=== PATIENT | female | born 1995 | race Caucasian/White ===

== ENCOUNTER 2020-01-21 14:04 | Outpatient (REF) | payer MEDICAID, SELFPAY ==
[2020-01-22 08:49] LABS: CT PCR NOT DETECTED (Not Detect.); NG PCR NOT DETECTED (Not Detect.)
== END 2020-01-21 14:05 | disposition home or self-care (01) ==
LOC: HO.LNP 14:04
PROVIDERS: PCP Internal Medicine; Referring Provider Internal Medicine; Visit Provider Obstetrics & Gynecology
DX: Z34.83 Encounter for supervision of other normal pregnancy, third trimester (principal)
CPT/HCPCS: 87081; 87491; 87591

== ENCOUNTER → 2020-01-29 14:25 | Outpatient (BNVA) | payer MEDICAID, SELFPAY | PROVIDERS: PCP Internal Medicine; Visit Provider Obstetrics & Gynecology | DX: Z76.89 Persons encountering health services in other specified circumstances (principal) ==

== ENCOUNTER → 2020-03-09 13:34 | Outpatient (BNVA) | payer MEDICAID, SELFPAY | PROVIDERS: PCP Internal Medicine; Visit Provider Advanced Practice Midwife | DX: Z39.2 Encounter for routine postpartum follow-up (principal) | CPT/HCPCS: 99212 ==

== ENCOUNTER → 2020-03-24 11:50 | Outpatient (BNVA) | payer MEDICAID, SELFPAY | PROVIDERS: Visit Provider Obstetrics & Gynecology | DX: Z76.89 Persons encountering health services in other specified circumstances (principal) ==

== ENCOUNTER → 2020-07-07 12:09 | Outpatient (BNVA) | payer OTHER, SELFPAY | PROVIDERS: Visit Provider Obstetrics & Gynecology ==

== ENCOUNTER → 2020-07-13 14:03 | Outpatient (BNVA) | payer OTHER, SELFPAY | PROVIDERS: Visit Provider Obstetrics & Gynecology | DX: Z30.09 Encounter for other general counseling and advice on contraception (principal) | CPT/HCPCS: 99212 ==

== ENCOUNTER 2020-07-16 09:57 | Day surgery (SDC) | payer OTHER, SELFPAY ==
--- NOTE | 2020-07-15 10:25 | HO.ANESPROP2 ---
Documented by User: Melonie Nuñez 07/15/20 10:25 HPI - Anesthesia Eval Consult details Narrative: 24yo F for Tubal Ligation Laparoscopic PMFSH Active Problems Active Problems: All Active Problems (Updated 07/09/20 @ 13:04 by Robyn Harris) Multigravida in third trimester (Acute) Encounter for assessment (Acute) Depression screen (Acute) Unwanted fertility (Acute) Past Medical History Medical History Recent childbirth Surgical History Surgical History No significant past surgical history Social History Social History Alcohol intake: never Smoking Status: Never smoker Use of substances other than those prescribed or required for medical reasons: No Advance Directives Information Provided: No Sexual orientation: Straight/Heterosexual Gender identity: female Meds Allergies Allergy/AdvReac Type Severity Reaction Status Date / Time No Known Allergies Allergy Verified 07/13/20 14:18 [No Known Allergies*] Exam Exam Date and Time: July 15, 2020 1025 Assessment and Plan Assessment Anesthesia Assessment: Chart Reviewed Documented by User: Karlene Cole 07/16/20 11:21 PMFSH Past Medical History Medical History Recent childbirth Family History Family history of problems with anesthesia: No Surgical History Surgical History No significant past surgical history History of Problems with Anesthesia: No Social History Social History Alcohol intake: never Smoking Status: Never smoker Use of substances other than those prescribed or required for medical reasons: No Advance Directives Information Provided: No Sexual orientation: Straight/Heterosexual Gender identity: female Meds Allergies Allergy/AdvReac Type Severity Reaction Status Date / Time No Known Allergies Allergy Verified 07/13/20 14:18 [No Known Allergies*] Exam Height,Weight and Vital Signs: Vital Signs Temp Pulse Resp BP Pulse Ox 07/16/20 10:56 97.3 F 81 16 119/84 99 Pertinent Lab Results Pertinent Lab Results: Lab Results 07/16/20 Range/Units 11:00 Urine Test NEGATIVE (NEGATIVE) Airway Mallampati Class: II TM Dist: >3cm Neck ROM: Full Partial: Upper Heart: RRR Lungs: CTAB Assessment and Plan Assessment Anesthesia Assessment: Anesthesia Plan Discussed and Chart Reviewed Final Anesthetic Review NPO: Yes ASA Class: II Final Preanesthetic Review: No Changes in Pt Med Stat, Meds/Allgs Chart Reviewed, Consent Obtained/Reviewed and Anes Risks/Benef Reviewed Patient Risk: Low Procedure Risk: Low Assessment/Block/Sedation in SS: Assess/Block/Sedation-SS Anesthetic Plan Anesthetic Plan: GA Disposition: Standard PACU
[2020-07-16 10:12] VITALS: BMI 32.5
[2020-07-16 10:56] VITALS: BP 119/84; PULSE 81; RESP 16; TEMP 36.3; O2SAT 99
[2020-07-16 11:17] LABS: UPreg QC Valid YES; Urine Pregnancy NEGATIVE (NEGATIVE)
[2020-07-16] MEDS: Lactated Ringers 1,000 ML 100 ML IVCONT (11:17)
[2020-07-16] MEDS: Acetaminophen 325 MG TABLET 650 MG PO (11:20)
--- NOTE | 2020-07-16 11:23 | MHC.SHP ---
Pre-Procedural Eval Section A The patient is an INPATIENT: No Changes since office visit: No Cold of Flu in the past 2 weeks, No New Medical Problems, No Changes in Medication and No Patient answered all questions The History & Physical has been completed within 30 days and I have reviewed it.: Yes Section B Chief Complaint: contraception Allergies: Allergies Allergy/AdvReac Type Severity Reaction Status Date / Time No Known Allergies Allergy Verified 07/13/20 14:18 [No Known Allergies*] Plan I have reviewed the history and physical and performed a pertinent physical examination on my patient. No changes have occurred unless specified.
--- NOTE | 2020-07-16 11:32 | W.PM.OPN ---
Operative Note Operative Note Date of Service: 07/16/20 Narrative: Pre-Op Diagnosis: unwanted fertility Post-op Diagnosis: unwanted fertility Procedures performed: laparoscopic bilateral tubal ligation Ms. Hoang Steele is a 24 year old who has completed her family planning and desires a permanent form of sterilization. Surgical Risks: The patient was informed of the risks and benefits of the procedure. Risks included but were not limited to bleeding; infection; injury to the vulva, vagina, cervix, uterus, bladder, intestines, blood vessels, or nerves. The patient was counseled on the risk of sterilization failure being about 1% on average. The patient was informed that in the event a occurs, the risk of ectopic is increased. The patient expressed understanding of the risks involved, all questions were answered, and the patient consented to the procedure. The patient had valid sterilization consent at the time of the procedure. The patient was taken to the operating room where a time out was performed to confirm correct patient and correct procedure. General anesthesia was established. The patient was then positioned on the operating table in the dorsal lithotomy position with the legs supported using stirrups. All pressure points were padded and a Vane hugger was placed to maintain control of core body temperature. The patient was then prepped and draped in the usual sterile fashion. A red rubber catheter was inserted the bladder drained. A sponge stick was placed in the vagina for uterine manipulation. Attention was turned to the abdomen where a 5mm vertical infraumbilical incision was made. The 5mm trocar was introduced under direct visualization using the laparoscopy within the sleeve of the trocar. After intra-abdominal placement had been confirmed, the trocar was removed leaving the sleeve in place. The camera was introduced and pneumoperitoneum was established using carbon dioxide. Inspection of the abdominal cavity showed no gross abnormalities and there was no evidence of injury to the bowel, bladder, or vasculature. Attention was turned to the pelvis. The patient was placed into Trendelenburg position. The fallopian tubes and ovaries were visualized bilaterally. There were no abnormalities noted. A small incision was made in the midline approximately 2cm above the pubic symphysis. A 5mm trocar was introduced through this incision under direct visualization with the laparoscope. The fallopian tubes were inspected bilaterally and the fimbriated ends of the fallopian tube were visualized bilaterally. The right fallopian tube and mesosalpinx were grasped and cauterized using monopolar electrocautery. This was done with approximately three younger starting medially about 1cm from the cornua and working laterally. Good cautery was confirmed. Attention was then turned to the contralateral fallopian tube and mesosalpinx which was grasped about 1cm from the cornua and cauterized with three younger moving laterally with each cauterization. Good fulguration of both tubes was then confirmed. The pneumoperitoneum was then evacuated. The laparoscope was removed and the trocar sleeves were removed. The trocar sites were each injected, after aspiration to confirm location not in a blood vessel, with 0.5% bupivicaine subcutaneously for a total of 10cc. The skin incisions were closed each with one interrupted 3-0 Vicryl suture; Dermabond was then applied. Good hemostasis was confirmed. The patient was transferred to the recovery room in stable condition. All needle, sponge, and instrument counts were noted to be correct x2 at the end of the procedure.
[2020-07-16 12:37] VITALS: BP 126/77; PULSE 84; RESP 16; TEMP 36.2; O2SAT 100
[2020-07-16 12:42] VITALS: BP 121/75; PULSE 67; RESP 17; O2SAT 100
[2020-07-16 12:47] VITALS: BP 126/68; PULSE 60; RESP 17; O2SAT 99
[2020-07-16 12:52] VITALS: BP 116/80; PULSE 66; RESP 17; O2SAT 100
[2020-07-16 13:06] VITALS: BP 125/67; PULSE 64; RESP 17; TEMP 36.2; O2SAT 99
== END 2020-07-16 14:08 | disposition home or self-care (01) ==
LOC: HO.SSS 09:58
PROVIDERS: Nurse Practitioner; Visit Provider Obstetrics & Gynecology
PROC: (CPT 58670; principal; 2020-07-16 11:20)
DX: Z30.2 Encounter for sterilization (principal)
CPT/HCPCS: 58670; 81025; J1100; J2250; J2405; J3010

== ENCOUNTER 2022-11-24 09:50 | Outpatient (REF) | payer OTHER, SELFPAY ==
[2022-11-27 04:49] LABS: TS Negative Control Passed; TS Panel A 0; TS Panel B 0; TS Positive Control Passed; TSpotTB Negative (Negative)
== END 2022-11-24 09:51 | disposition home or self-care (01) ==
LOC: HO.HHCL 09:50
PROVIDERS: Visit Provider Internal Medicine Geriatric Medicine
DX: Z11.1 Encounter for screening for respiratory tuberculosis (principal)
CPT/HCPCS: 36415; 86481

== ENCOUNTER 2023-06-07 14:52 | Outpatient (AMB) | payer OTHER, SELFPAY ==
[2023-06-07 14:54] VITALS: BP 94/62; BMI 35.9
--- NOTE | 2023-06-07 14:54 | MHC.OFFVIS ---
Intake Vital Signs 06/07/23 14:54 Height 5 ft 4 in Weight 209 lb BMI 35.9 BP 94/62 Intake Visit Reasons: Amenorrhea Intake Note: Hasn't had her menses in 2-3 months has taken at home test and all are negative she has had a tubal ligation and states she has always been irregular Director Intelligence Analysis Programs Required: No Information Interpreted: non-clinical & clinical Orderlies Teacher: Orderlies Teacher Present (Rubin) Allergies No Known Allergies [No Known Allergies*] Allergy (Verified 06/07/23 14:57) Medication List - Last Reconciled 06/07/23 by Rebecca Cabrera CNM xqqeucwxsuuc-Bu-lvhv-minerals tabs PO Is last menstrual period known: Yes Last menstrual period: 03/08/23 Post menopausal: No HPI Amenorrhea HPI Details 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 Additionally she wants to talk about missed periods she has not had her periods since around in February which is 3 months. She had her tubes tied after her son was born so she has not worried about . Her son is 3 years old and she still does nurse him lately he does more snacking and nurses for 3 or 5 minutes on 1 side than switches to the other than switches back. [facility] Medical History (Updated 06/07/23 @ 15:29 by Rebecca Cabrera CNM) Recent childbirth Surgical History (Updated 06/07/23 @ 14:58 by DRAKE Malin) Hx of tubal ligation Social History Alcohol intake: never Sexual orientation: Straight/Heterosexual Gender identity: Female Female Reproductive History Menstrual Age of Menarche: 10 Duration of menses: 6-7 days Date of last menstrual period: 03/08/23 control method: other (tubal ligation) Total pregnancies: 2 Full term: 2 Number of Living Children: 2 Date of last pap smear: 09/17/18 (negative) History of abnormal pap smear: No Physical Exam Vital Signs: BMI result Body Mass Index 35.9 Const General: healthy appearing, comfortable, no acute distress, well developed and alert Nutritional Appearance: average body habitus Orientation/consciousness: patient oriented x3 Limitations: no limitations HEENT Head: Yes normocephalic Neck Neck: Yes normal visual inspection Thyroid: Thyroid normal Chest Chest palpation & inspection: normal inspection of the chest Breast/axilla inspection: normal inspection of the breasts and normal inspection of the axillae Breast/axilla palpation: normal palpation of the breasts and normal palpation of the axillae Resp Effort & Inspection: normal respiratory effort GI Inspection: Yes normal to inspection, No Abdominal wall edema and No distended Palpation (GI): Soft to palpation and nontender Other: Vagina pink and moist cervix multiparous pink smooth mobile nontender uterus small retroverted to midposition nontender adnexa nontender weak tone with Kegel General: Yes bladder normal to palpation External Female Exam: normal external appearance and normal appearance of the urethra Speculum Exam - Vagina: normal appearance of the vagina, normal palpation and normal vaginal discharge Speculum Exam - Cervix: normal appearance of the cervix, normal palpation and nontender Bimanual exam- vagina & uterus: normal bimanual exam, normal palpation, uterine size normal, bladder normal to palpation, consistency normal, normal palpation, uterine mobility normal, uterine shape normal, No Cervical tenderness present, non-tender and no cervical motion tenderness Bimanual Exam- Adnexa, other: normal adnexae, no masses, normal and No adnexal tenderness Neuro General: patient oriented x3 Assessment & Plan Assessment & Plan (1) Amenorrhea, secondary: Code(s): N91.1 - Secondary amenorrhea (2) Well woman exam with routine gynecological exam: Code(s): Z01.419 - Encounter for gynecological examination (general) (routine) without abnormal findings (3) Lactating mother: Code(s): Z39.1 - Encounter for care and examination of lactating mother (4) Obesity (BMI 35.0-39.9 without comorbidity): Code(s): E66.9 - Obesity, unspecified Plan -----Discussed in this visit the following: healthy balanced diet, regular and consistent exercise, getting recommended health screens, doing the best she can for her particular health concerns, kegel exercises, pap smear screening and followup recommendations, mammography screening and SBE, normal changes in cycles in her life stage--- .---I Had the patient and demonstrate a Kegel contraction at the end of the exam, ordered in order to explain a Kegel exercise, and instructed the patient on doing the same exercises several times a day with increasing strength each time. One useful to is to imagine pursestring around the vagina and pulling it tight and upwards as if raising the vagina, or imagining that her tight muscles are on the 1st floor and she is trying to pull them up to the 5th floor and then slowly letting them go down. To try to do these several times a day but focus on the quality and the strength of the exercises more than the quantity, and tried isolate just those muscles and not involve other body parts. ----Discussed in general terms the challenges of obesity and challenges for her health and efforts she is engaging in to manage this including dietary changes water intake attention to sleep inclusion of a regular exercise have it and dealing with the may need stressors of life that can contribute to obesity in general. Encouraged her to continue in all have her best efforts -----discussed the connection between weight gain and missing menses and she has always had some increased facial hair she has not noticed too much change recently. Discussed to be alert and aware that that can increase she does gained more weight she is going to be working on trying to lose the weight. Discussed the option of taking Provera to try and induce a menses which is call the withdrawal bleed a few days after stopping the Provera. She is to take it for 10 days and await a very heavy. If she does not get a heavy. She should call and we will investigate other criteria meanwhile she said she is willing to go to the lab to get some blood work today I am ordering a prolactin level which I will not be surprised if it is elevated because she is still and also a TSH. We will see her if she does not get a menses. test here was negative. She delivered her 10-year-old at the [facility] and her 3-year-old at [facility] her 10-year-old daughter is in to make up and doing hair and learning about that and her 3-year-old is into [employer] a motocross racing with his grand dad. Orders: Orders Thyroid Stimulating Hormone Today N91.1 - Secondary amenorrhea, Z39.1 - Encounter for care and examination of lactating mother Prolactin Today N91.1 - Secondary amenorrhea, Z39.1 - Encounter for care and examination of lactating mother Medications: New medroxyprogesterone (Provera) 10 mg PO DAILY 10 tabs 0RF Coding Level of Care Code Est Pt Prev Care 18-39y(00622) Diagnoses Amenorrhea, secondary N91.1 Well woman exam with routine gynecological exam Z01.419 Lactating mother Z39.1 Obesity (BMI 35.0-39.9 without comorbidity) E66.9
== END 2023-06-07 16:20 | disposition home or self-care (01) ==
LOC: HO.HWSM 14:52
PROVIDERS: PCP Internal Medicine; Visit Provider Advanced Practice Midwife
DX: Z01.419 Encounter for gynecological examination (general) (routine) without abnormal findings (principal); N91.1 Secondary amenorrhea; E66.9 Obesity, unspecified
CPT/HCPCS: 99395

== ENCOUNTER 2023-06-07 14:52 | Outpatient (REF) | payer OTHER, SELFPAY ==
[2023-06-08 02:23] LABS: CT PCR NOT DETECTED (Not Detect.); NG PCR NOT DETECTED (Not Detect.)
[2023-06-08 13:37] LABS: BV Int Neg Control Negative (Negative); BV Int Pos Control Positive (Positive)
== END 2023-06-07 14:53 | disposition home or self-care (01) ==
LOC: HO.LNP 14:52
PROVIDERS: PCP Internal Medicine; Visit Provider Advanced Practice Midwife
DX: Z01.419 Encounter for gynecological examination (general) (routine) without abnormal findings (principal); N91.1 Secondary amenorrhea; E66.9 Obesity, unspecified
CPT/HCPCS: 0353U; 87480; 87510; 87660; 88142; 99395

== ENCOUNTER 2023-06-07 15:58 | Outpatient (REF) | payer OTHER, SELFPAY ==
[2023-06-07 18:16] LABS: Thyroid Stimulating Hormone 1.19 uIU/mL (0.32-4.0)
[2023-06-09 09:59] LABS: Prolactin 4.3 ng/mL
== END 2023-06-07 15:59 | disposition home or self-care (01) ==
LOC: HO.HHCL 15:58
PROVIDERS: Visit Provider Advanced Practice Midwife
DX: N91.1 Secondary amenorrhea (principal)
CPT/HCPCS: 36415; 84146; 84443

== ENCOUNTER 2023-10-02 22:20 | Emergency (ER) | payer OTHER, SELFPAY ==
--- NOTE | ~2023-10-02 | XR_ITS ---
EXAMINATION: XR ANKLE, LEFT CLINICAL INFORMATION: Injury. Pain. COMPARISON: None available. TECHNIQUE: AP, lateral, and mortise views of the left ankle. FINDINGS: The bone mineralization is within normal limits. The joint spaces are maintained. No fracture is seen. There is moderate anterolateral soft tissue swelling. XR/XR ankle LT min 3V IMPRESSION: Moderate anterolateral soft tissue swelling. No acute fracture.
[2023-10-02 22:48] VITALS: BP 133/86; PULSE 81; RESP 18; TEMP 36.1; O2SAT 100; BMI 36.8
[2023-10-03 00:27] VITALS: BP 126/77; PULSE 77; RESP 18; TEMP 36.9; O2SAT 97
--- NOTE | 2023-10-03 01:10 | ED.LOWEXIN ---
HPI - Extremity Injury (Lower) General Chief Complaint: Extremity Injury, Lower Stated Complaint: left ankle inj Time Seen by Provider: 10/03/23 00:39 Source: patient Mode of arrival: ambulatory Limitations: no limitations History of Present Illness ED Provider: olga lidia REED Narrative: While walking patient twisted her left ankle 2 days ago complaining of pain medial aspect history of prior injuries in the past no other injury Related Data Home Medications ?Medication ?Instructions ?Recorded ?Confirmed [id number]-Bj-ajwc-minerals tab PO 06/07/23 06/07/23 Previous Rx's ?Medication ?Instructions ?Recorded medroxyprogesterone 10 mg tablet 10 mg PO DAILY #10 tabs 06/07/23 (Provera) metronidazole 0.75 % (37.5 mg/5 1 appful vaginal BEDTIME 5 days 06/13/23 gram) vaginal gel #70 grams ibuprofen 600 mg tablet 600 mg PO Q6H PRN fever or pain 10/03/23 #30 tabs Allergies Allergy/AdvReac Type Severity Reaction Status Date / Time No Known Allergies Allergy Verified 10/02/23 22:52 [No Known Allergies*] Review of Systems Review of Systems: Yes all other systems are reviewed and are negative PMFSH Past Medical History Medical History Recent childbirth Surgical History Hx of tubal ligation Social History Social History Alcohol intake: never Smoked in Last 30 Days: No Advance Directives: No Advance Directives Information Provided: Yes Do you have a plan to hurt others: No Plan Patient : No Sexual orientation: Straight/Heterosexual Gender identity: Female Physical Exam Vital Signs: Vital Signs: Last Vital Signs Temp 98.0 F 10/03/23 01:42 Pulse 67 10/03/23 01:42 Resp 17 10/03/23 01:42 BP 134/80 10/03/23 01:42 Pulse Ox 99 10/03/23 01:42 O2 Del Method Room Air 10/03/23 01:42 BMI result Body Mass Index 36.8 Extrem: Ankle/foot/toe images: 1. Tenderness at medial malleolus with mild swelling neurovascular intact Medications Administered Discontinued Medications Generic Name Dose Route Start Last Admin Trade Name Freq PRN Reason Stop Dose Admin Oxycodone HCl 10 mg 10/03/23 01:34 10/03/23 01:41 Oxycodone Hcl Immed Release 5 Mg Tablet PO 10/03/23 01:35 10 mg ONCE ONE Administration Medical Decision Making Medical Decision Making [facility] Narrative: Patient with minor left ankle sprain will apply Payam wrap crutches and pain medicine x-ray negative for fracture Independent Interpretation I performed an independent interpretation of an: Plain X-Ray Radiology Impression Discussion of test interpretation with radiology: I have reviewed the radiologist's reading. Discharge Plan Discharge Clinical Impression: Ankle sprain and strain Patient Disposition: Home, Self-Care Instructions: Ankle Sprain (ED) Additional Instructions: Rest apply ice With Payam wrap for support Use crutches for ambulation Ibuprofen for pain Prescriptions: New ibuprofen 600 mg tablet 600 mg PO Q6H PRN (Reason: fever or pain) Qty: 30 0RF No Action metronidazole 0.75 % (37.5mg/5 gram) gel 1 appful vaginal BEDTIME 5 Days Qty: 70 0RF [id number]-Jp-xhcs-minerals Tablet PO medroxyprogesterone [Provera] 10 mg tablet 10 mg PO DAILY Qty: 10 0RF Stand Alone Forms: Work/School Release Interventions: ED Discharge Assessment Last Done: 10/03/23 01:42 Discharge Date/Time: 10/03/23 01:47 Print Language: Citizen Of [place]
[2023-10-03] MEDS: oxyCODONE HCl Immed Release 5 MG TABLET 10 MG PO (01:41)
[2023-10-03 01:42] VITALS: BP 134/80; PULSE 67; RESP 17; TEMP 36.7; O2SAT 99
== END 2023-10-03 01:47 | disposition home or self-care (01) ==
PROVIDERS: Emergency Provider Internal Medicine; PCP Internal Medicine
DX: S96.912A Strain of unspecified muscle and tendon at ankle and foot level, left foot, initial encounter (principal); S93.402A Sprain of unspecified ligament of left ankle, initial encounter; X50.1XXA Overexertion from prolonged static or awkward postures, initial encounter; Y93.9 Activity, unspecified; Y92.9 Unspecified place or not applicable; Y99.9 Unspecified external cause status
CPT/HCPCS: 73610; 99283; 99284

== ENCOUNTER 2024-08-15 10:01 | Outpatient (REF) | payer MEDICAID, SELFPAY ==
--- OUTSIDE RECORDS SUMMARY | 2024-08-15 11:18 | XMS_ITS | Clinical Summary ---
Author Organization [facility] it Address [address] [place] [address] Care Team Providers Care Vocational Adviser Name Role Phone Unavailable Primary Care Provider Unavailabl e Medical History Medical History Date Comments Gastritis DX:Gastritis Anxiety DX:Anxiety Family History Medical History Relation Name Comments Other: vascular disease Maternal Grandfather Diabetes Maternal Grandmother Liver disease Paternal Grandmother Relation Name Status Comments Father Alive Maternal Grandfather Maternal Grandmother Alive Mother Alive Paternal Grandmother Social History Tobacco Use Types Packs/Day Years Used Date Smoking Tobacco: Never Smokeless Tobacco: Never Alcohol Use Standard Drinks/Week Comments No 0 (1 standard drink = 0.6 oz pur e alcohol) Comments Unknown Sex and Gender Information Value Date Recorded Sex Assigned at Not on file Legal Sex Female 7:02 AM EST Gender Identity Not on file Sexual Orientation Not on file Obstetrics History Plan of Treatment Health Maintenance Due Date Last Done Comments DTaP,Tdap,and Td Vaccines (1 - Tdap) 2012 Hepatitis B Vaccines (1 of 3 - 19+ 3-dose series) 2012 Cervical Cancer Screening: P ap Smear 2014 COVID-19 Vaccine (2023-2 5 season) 2023 Influenza Vaccine (Season Ended) 2024 HIB Vaccines Aged Out No longer eligi ble based on patient's age to complete this topic HPV Vaccines Aged Out No longer eligi ble based on patient's age to complete this topic Hepatitis A Vaccines Aged Out No long er eligible based on patient's age to complete this topic IPV Vaccines Aged Out No longer eligi ble based on patient's age to complete this topic MMR Vaccines Aged Out No longer eligi ble based on patient's age to complete this topic Meningococcal ACWY Vaccine Aged Out N o longer eligible based on patient's age to complete this topic Meningococcal B Vaccine Aged Out No l onger eligible based on patient's age to complete this topic Pneumococcal Vaccine: Pediat rics (0 to 5 Years) and At-Risk Patients (6 to 64 Years) Aged Out No longer eligible b ased on patient's age to complete this topic RSV Immunization Patients Un jamia 20 months Aged Out No longer eligible b ased on patient's age to complete this topic Varicella Vaccines Aged Out No longer eligible based on patient's age to complete this topic
--- OUTSIDE RECORDS SUMMARY | 2024-08-15 11:18 | XMS_ITS | Clinical Summary ---
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 Depressive disorder 09/26/2013 Chronic rhinitis 11/17/2011 Encounters Date Type Department Care Team Description 08/15/2024 9:15 AM EDT Office Visit [facility] [address] [place] [address] Dom Mccord MD Physical exam (Primary Dx); Obesity (BMI 35.0-39.9 without comorbidity) 08/15/2024 Travel 08/13/2024 Telephone [facility] [address] [place] [address] Denny Hewitt MA chartprep 08/02/2024 Patient Outreach [facility] [address] [place], [place] [phone] Shalini Arambula MD Pre-visit Planning (SDOH was already completed.n ) 07/17/2024 Population Health Risk Score [facility] ([facility]) Department [address] [phone] Provider, Population Health Generic 05/28/2024 Telephone [facility] [address] [place] [address] Shalini Arambula MD Telephone Call 05/27/2024 Telephone [facility] [address] [place] [address] [phone] Denny Hewitt MA chartprep 05/20/2024 Patient Outreach [facility] [address] [place] [address] Shalini Arambula MD Care Coordination (CHW outreach for SDOH food and utilities - LVM ) 05/20/2024 Patient Outreach [facility] [address] [place] [address] Shalini Arambula MD Pre-visit Planning (SDOH screening positive and Tobacco screening negative) from Last 3 Months Immunizations Name Administration Dates Next Due DTP 11/22/2005, 8,09/13/1995,03/02,1993,1993 DTaP 03/18/2013 HPV, Bivalent 05/31/2010 HPV, Quadrivalent 11/17/2011 Hep B, Adolescent or Pediatric 05/17/1994,1993,1993 Hib ([facility]) 09/13/1995, 4,1993,10/05 IPV 09/13/1995, 4,1993,10/05 Influenza injectable quadriv alent preservative free 06/05/2018,03/18/2013 MMR 03/17/2013,09/02/1997,03/27/1995 Meningococcal MCV4P ACYW-135 11/26/2009 Pfizer Covid-19 Vaccine 12+ Bivalent 04/29/2022 Tdap 12/11/2019,11/17/2011 Varicella 05/31/2010,11/26/2009 Family History Medical History Relation Name Comments Diabetes Maternal Grandmother Relation Name Status Comments Maternal Grandmother Social History Tobacco Use Types Packs/Day Years Used Date Smoking Tobacco: Never Smokeless Tobacco: Never Tobacco Cessation:Counseling Given: Not Answered Alcohol Use Standard Drinks/Week Comments Never 0 (1 standard drink = 0.6 oz pur e alcohol) Depression Answer Date Recorded Patient Health Questionnaire-9 Score 3 08/15/2024 Patient Health Questionnaire-9 Score 3 08/15/2024 Last PHQ-9: Questionnaire Data Not on file 0 08/15/2024 Housing Stability Answer Date Recorded What is your housing situation today? I have albert dolan 05/20/[address] you li ve. Do you have problems with any of the following? None of the above 05/20/2024 Food Insecurity Answer Date Recorded Within the past 12 months, y ou worried that your food would run out before you got money to buy more: Never True 05/20/2024 Within the past 12 months,th e food you bought just didn't last and you didn't have enough money to get more: Never True 06/2024 Transportation Answer Date Recorded In the past 12 months, has l ack of transportation kept you from medical appts, meetings, work or from getting things needed for daily living? No 05/20/2024 Utilities Answer Date Recorded In the past 12 months, has t he electric, gas, oil or water company threatened to shut off services in your home? 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 file Not on file Not on allan e Last Filed Vital Signs Vital Sign Reading Time Taken Comments Blood Pressure 139/84 08/15/2024 9:12 AM EDT Pulse 80 08/15/2024 9:12 AM EDT Temperature 36.9 ??C (98.5 ??F) 08/15/2024 9:12 AM ED T Respiratory Rate 20 08/15/2024 9:12 AM EDT Oxygen Saturation 98% 08/15/2024 9:12 AM EDT Inhaled Oxygen Concentration - - Weight 97.1 kg (214 lb) 08/15/2024 9:12 AM EDT Height 162.6 cm (5' 4 ) 08/15/2024 9:12 AM EDT Body Mass Index 36.73 08/15/2024 9:12 AM EDT Plan of Treatment Upcoming Encounters Date Type Department Care Team (Late st Contact Info) Description 11/06/2024 11:30 AM EDT Office Visit [facility] [address] [facility] [place] [address] Shalini Arambula MD [address] [facility] [place] [address] Health Maintenance Due Date Last Done Comments Lipid Panel 1993 Family Planning (PISQ) 2008 HPV Vaccines (3 - 3-dose series) 02/09/2012 11/17/2011, 05/31/2010 COVID-19 Vaccine ( season) 2023 04/29/2022, 05/27/2021, 10/30/2020, Additional history exists Influenza Vaccine (#1) 2023 06/05/2018, 2012 SDOH Screening 05/20/2025 05/20/2024 Alcohol/Substance Use Screening 08/15/2025 08/15/2024 Depression Screening 08/15/2025 08/15/2024, 08/16/19 25 Tobacco Screening 08/15/2025 08/15/2024 Cervical Cancer Screening 06/07/2026 HPV/Cotest 06/07/2026 Pap Smear 06/07/2026 06/07/2023 DTaP/Tdap/Td Vaccines (10 - Td or Tdap) 12/10/2029 12/11/2019, 03/18/2013, 11/17/2011, Additional history exists Zoster Vaccines (1 of 2) 08/06/2043 RSV Patients and Patients Aged 60 years or older (1 - 1-dose 75+ series) 2068 Hepatitis B Vaccines Completed 05/17/1994, 1993, 1993 HIB Vaccines Completed 09/13/1995, 02/15, 1993, Additional history exists IPV Vaccines Completed 09/13/1995, 02/15, 1993, Additional history exists Meningococcal Vaccine Completed 11/26/2009 Hepatitis C Screening Completed 08/07/2019 HIV Screening Completed 11/27/2019, 08/07/2019 Hepatitis A Vaccines Aged Out No long er eligible based on patient's age to complete this topic Pneumococcal Vaccine: Pediatrics (0 to 5 Years) and At-Risk Patients (6 to 49) Years) Aged Out No longer eligible based on patient's age to complete this topic RSV under 20 months Aged Out No longe r eligible based on patient's age to complete this topic Rotavirus Vaccines Aged Out No longer eligible based on patient's age to complete this topic Procedures Procedure Name Priority Date/Time Associated Diagnosis Comments PAP SMEAR Routine 06/07/2023 4:02 PM EST [facility] HISTORICAL HIV AB/AG Routine 11/27/2019 1:25 PM EDT [facility] HISTORICAL HEPATITIS C ANTIBODY Routine 08/07/2019 3:40 PM EDT from Last 3 Months or Most Recently Relevant to Health Maintenance Results * Pap Smear (06/07/2023 4:02 PM EST) 06/07/2023 4:02 PM EST 06/09/2023 10:00 AM EST [facility] - 06/23/2023 10:04 AM EST ----- ------- Name: Adriana Chowdhury ?Age/Sex: 27/F ? : 1995 Unit#: [id number] ?? Attend Dr: Rebecca Cabrera CNM ?Re06/07/23 ?Status: DEP REF ? Location: HO.LNP ?Disch: ? ----- ------- SPEC : [id number] ? RECD: 06/09/23-1000 ? STATUS: ??SOUT ? REQ NUM: [id number] ? FEMI: 06/07/23-1602 ? SUBM DR: Rebecca Cabrera CNM ? ENTERED: ??06/09/23-5 ?SP TYPE: Pap Smr ?OTHR DR: Shalini Arambula MD ? ORDERED: ??Pap Smear ? Interpretation ?? Satisfactory for evaluation. ?? Coccobacilli consistent with shift in vaginal baron. ?? Negative for intraepithelial lesion or malignancy. ?Clinical Information LMP: 03/08/23 Previous PAP test: 09/17/2018, WNL ? Material Received ?? ThinPrep-Cervical Copies To: ?? Shalini Arambula MD ?? [address] ?? [place] [id number] ? Rebecca Cabrera CNM ?? [address] ?? [place] [address] ?? [phone] ----- ------- Signed ([facility] on file) NATALIA Covarrubias ([facility]) 06/23/23 1004 ? ----- ------- ? END OF REPORT ? us Generic External Data Provider LAB CYTOLOGY PAIGE HIDALGO Final Result [facility] [address] [place] [phone] * HIV AB/AG (11/27/2019 1:25 PM EDT) [facility] HIV AG/AB NONREACTIVE [facility] Comment: HIV-1 p24 Ag and/or HIV-1/HIV-2 Ab not detected. ?? A test result that is nonreactive does not exclude the possibility of exposure to or infection with HIV-1 and/or HIV-2. Nonreactive results in this assay for individuals with prior exposure to HIV-1 and/or HIV-2 may be due to antigen and antibody levels that are below the limit of detection of this assay. ?? The [employer] HIV Ag/Ab Combo assay result and supplemental assay results should be interpreted in conjunction with the patient's clinical presentation, history and other laboratory results. ??If the results are inconsistent with clinical evidence, additional testing is suggested to confirm the result. 11/27/2019 1:25 PM EDT us Historical Provider HISTORICAL/NON ORDERABLE LABS Final Result Performing Organization Address [facility] Co de Phone Number [facility] [address] * HEPATITIS C ANTIBODY (08/07/2019 3:40 PM EDT) Pathologist [facility] HEPATITIS C ANTIBODY NONREACTIVE NONREACTIVE [facility] Comment: Antibodies to HCV not detected; does not exclude early acute HCV infection. 08/07/2019 3:40 PM EDT Sabiha Jensen HISTORICAL/NON ORDERABLE LABS Fi nal Result Performing Organization Address [facility] de Phone Number [facility] [address] from Last 3 Months or Most Recently Relevant to Health Maintenance Insurance [facility] C3 Care Teams Lithograph Designer Relationship Specialty Start Date End Date Shalini Arambula MD [address] [place] [phone] PCP - General Family Medicine 12/16/16
--- OUTSIDE RECORDS SUMMARY | 2024-08-15 11:18 | XMS_ITS | Encounter Summary ---
Author Organization [employer] Address [address] [place] [address] 7[address] [place] [address] Care Team Providers Care Coke Crane Operator Name Role Phone Shalini Arambula MD Primary Care Provider + Encounter Details Date Type Department Care Team ([facility] st Contact Info) Description 08/15/2024 9:15 AM EDT Office Visit [facility] [address] [place], [place] [phone] Name, MD Dom [address] [place] [address] Physical exam (Primary Dx); Obesity (BMI 35.0-39.9 without comorbidity) Social History Tobacco Use Types Packs/Day Years Used Date Smoking Tobacco: Never Smokeless Tobacco: Never Alcohol Use Standard Drinks/Week Comments Never 0 [...] Not on file Not on allan e documented as of this encounter Last Filed Vital Signs Vital Sign Reading [...] Mass Index 36.73 08/15/2024 9:12 AM EDT documented in this encounter Plan of Treatment Upcoming Encounters Date Type Department Care Team (Late st Contact Info) Description 11/06/2024 11:30 AM EDT Office Visit [facility] [address] [place] [address] Shalini Arambula MD [address] [place] [address] Scheduled Orders Name Type Priority Associated Diagnoses Orde r Schedule Comprehensive Metabolic Panel Lab Routine Physical exam Obesity (BMI 35.0-39.9 without comorbidity) Expected: 08/15/2024 (Approximate), Expires: 08/15/2025 Lipid Panel, Standard Lab Routine Physical exam Obesity (BMI 35.0-39.9 without comorbidity) Expected: 08/15/2024 (Approximate), Expires: 08/15/2025 TSH W/Reflex to FT4 Lab Routine Physical exam Obesity (BMI 35.0-39.9 without comorbidity) Expected: 08/15/2024 (Approximate), Expires: 08/15/2025 documented as of this encounter Visit Diagnoses Diagnosis Physical exam- Primary Unspecified general medical examination Obesity (BMI 35.0-39.9 without comorbidity) documented in this encounter Additional Health Concerns Assessment Noted Time PHQ-9 Depression Total Score: 3 08/16/19 25 9:50 AM EDT documented as of this encounter Care Teams Coke Crane Operator Relationship Specialty Start Date End Date Shalini Arambula MD [address] [place] [phone] PCP - General Family Medicine 12/16/16 documented as of this encounter
--- OUTSIDE RECORDS SUMMARY | 2024-08-15 11:18 | XMS_ITS | Encounter Summary ---
Author Organization [facility] Address [address] [place] [address] 7t [place] [address] Care Team Providers Care Weeder Name Role Phone Shalini Arambula MD Primary Care Provider + Reason for Visit * Reason Onset Date Comments Appointment Request 11/09/2022 Encounter Details Date Type Department Care Team (Late st Contact Info) Description 11/09/2022 Telephone [facility] [address] [place] [phone] Shalini Arambula MD [address] [place] [address] Appointment Request Social History Tobacco Use Types Packs/Day Years Used Date Smoking Tobacco: Never Smokeless Tobacco: Never Comments Unknown Sex and Gender Information Value Date Recorded Sex Assigned at Female 02/14/2022 10:21 AM EDT Legal Sex Female 10:21 AM EDT Gender Identity Female 02/14/2022 10:21 AM EDT Sexual Orientation Straight 02/14/2022 10 :21 AM EDT documented as of this encounter Miscellaneous Notes * Telephone Encounter - Jasmynkvng Sarwat Sullivan - 11/09/2022 4:33 PM EDT Tc from pt requesting a physical appt for work and a TB Test as well. Please contact pt at [phone] documented in this encounter Plan of Treatment Upcoming Encounters Date Type Department Care Team (Late st Contact Info) Description 11/06/2024 11:30 AM EDT Office Visit [facility] [address] [place] [address] Shalini Arambula MD [address] [place] [address] documented as of this encounter Visit Diagnoses Not on filedocumented in this encounter Care Teams Weeder Relationship Specialty Start Date End Date Shalini Arambula MD [address] [place] [address] PCP - General Family Medicine 12/16/16 documented as of this encounter
--- OUTSIDE RECORDS SUMMARY | 2024-08-15 11:18 | XMS_ITS | Encounter Summary ---
Author Organization [employer] Address [address] [place] [address] 7t [place] [address] Care Team Providers Care Tool Profiling Machine Set Up Operator Name Role Phone Shalini Arambula MD Primary Care Provider + Reason for Visit * Reason Onset Date Comments chartprep 08/13/2024 Encounter Details Date Type Department Care Team ([facility] st Contact Info) Description 08/13/2024 Telephone [facility] [address] [place], [place] [phone] Denny Hewitt MA chartprep Social History Tobacco Use Types Packs/Day Years Used Date Smoking Tobacco: Never Smokeless Tobacco: Never Alcohol Use Standard Drinks/Week Comments Never 0 (1 standard drink = 0.6 oz pur e alcohol) Depression Answer Date Recorded Patient Health Questionnaire-9 Score 0 11/24/2022 Housing Stability Answer Date Recorded What is [...] Date Recorded Patient Health Questionnaire-2 Score 0 11/24/2022 Internet Access Answer Date Recorded Internet Access [...] encounter Miscellaneous Notes * Telephone Encounter - Denny Hewitt MA - 08/13/2024 9:47 AM EDT Chart Prep Labs: done Images: done Referrals: not applicable Vaccines due: Covid,flu, HPV Screenings: not applicable Overdue care gaps: SBIRT, PHQ-9, EDITH-7, and Disability screen documented in this encounter Plan of Treatment Upcoming Encounters Date Type Department Care Team (Late st Contact Info) Description 11/06/2024 11:30 AM EDT Office Visit [facility] [address] [place] [address] Shalini Arambula MD [address] [place] [address] documented as of this encounter Visit Diagnoses Not on filedocumented in this encounter Additional Health Concerns Assessment Noted Time PHQ-9 Depression Total Score: 0 11/25/19 9:24 AM EDT documented as of this encounter Care Teams Tool Profiling Machine Set Up Operator Relationship Specialty Start Date End Date Shalini Arambula MD [address] [place] [phone] PCP - General Family Medicine 12/16/16 documented as of this encounter
--- OUTSIDE RECORDS SUMMARY | 2024-08-15 11:18 | XMS_ITS | Encounter Summary ---
Author Organization [employer] Address [address] [facility] 7t [place] [address] Care Team Providers Care Lead Nuclear Medicine Technologist Name Role Phone Shalini Arambula MD Primary Care Provider + Encounter Details Date Type Department Care Team (Latest Contact Info) Description 08/15/2024 Travel Social History Tobacco Use Types Packs/Day Years [...] allan e documented as of this encounter Plan of Treatment Upcoming Encounters Date Type Department Care Team (Late st Contact Info) Description 11/06/2024 11:30 AM EDT Office Visit [facility] [address] [place] [phone] Shalini Arambula MD [address] [place] [phone] documented as of this encounter Visit Diagnoses Not on filedocumented in this encounter Additional Health Concerns Assessment Noted Time PHQ-9 Depression Total Score: 3 08/16/19 25 9:50 AM EDT documented as of this encounter Care Teams Lead Nuclear Medicine Technologist Relationship Specialty Start Date End Date Shalini Arambula MD [address] [place] [phone] PCP - General Family Medicine 12/16/16 documented as of this encounter
[2024-08-15 12:10] LABS: Alanine Aminotransferase 26 U/L (0-31); Albumin Level 4.4 g/dL (3.5-5.0); Alkaline Phosphatase 89 U/L (39-117); Anion Gap 11 (12-20); Aspartate Amino Transferase 23 U/L (5-31); Bilirubin Total 0.4 mg/dL (0.0-1.0); Blood Urea Nitrogen 15 mg/dL (9-16); Calcium 9.4 mg/dL (8.4-10.2); Carbon Dioxide 28 mmol/L (22-29); Chloride 105 mmol/L (96-108); Cholesterol 175 mg/dL (<200); Estimated Glomerular Filt Rate > 60; Glucose Random 92 mg/dL (60-115); HDL Cholesterol 44 mg/dL (>40); LDL Cholesterol Calculated 119 mg/dL (<100); Sodium 140 mmol/L (135-145); Total Protein 7.7 g/dL (6.5-8.0); Triglycerides 63 mg/dL (<150)
[2024-08-15 12:18] LABS: TSH reflex Free T4 1.67 uIU/mL (0.32-4.0)
== END 2024-08-15 10:02 | disposition home or self-care (01) ==
LOC: HO.HHCL 10:01
PROVIDERS: Visit Provider Internal Medicine Geriatric Medicine
DX: Z00.00 Encounter for general adult medical examination without abnormal findings (principal); E66.9 Obesity, unspecified
CPT/HCPCS: 36415; 80053; 80061; 84443